=== PATIENT | female | born 1960 | race Caucasian/White ===

== ENCOUNTER → 2016-10-29 | Outpatient (CLI) | payer OTHER ==
[2015-12-25 08:05] VITALS: BP 163/77
[~2016-10-29] MED LIST: HYDR-971 PO; IBUP-1060 PO; LEVO25TA55 PO; METH4TAB2 PO
[2016-10-29 07:11] LABS: BASO % 1 % (0-3); EOS % 1 % (0-3); HEMATOCRIT 41.7 % (36.0-47.0); LYMPH # 1.7 x10^3/uL (1.0-4.8); LYMPH % 23 % (24-48); MEAN CORPUSCULAR HEMOGLOBIN 31 pg (25-35); MEAN CORPUSCULAR HGB CONC 34 g/dL (31-37); MEAN CORPUSCULAR VOLUME 91 fL (79-100); MONO % 5 % (0-9); NEUT % 70 % (31-73); PLATELET COUNT 235 x10^3/uL (140-400); RED BLOOD COUNT 4.56 x10^6/uL (3.50-5.40); RED CELL DISTRIBUTION WIDTH 13.9 % (11.5-14.5); WHITE BLOOD COUNT 7.6 x10^3/uL (4.0-11.0)
[2016-10-29 07:37] LABS: ALBUMIN 3.5 g/dL (3.4-5.0); ALBUMIN/GLOBULIN RATIO 1.1 (1.0-1.7); CALCIUM 8.5 mg/dL (8.5-10.1); CHOLESTEROL/HDL RATIO 3.8; CREATININE 0.9 mg/dL (0.6-1.0); GFR 64.8; POTASSIUM 4.1 mmol/L (3.5-5.1); TOTAL BILIRUBIN 0.3 mg/dL (0.2-1.0); TOTAL PROTEIN 6.8 g/dL (6.4-8.2)
== END | disposition home or self-care (01) ==
LOC: LAB 06:38
PROVIDERS: ATTEND Internal Medicine
DX: E03.9 Hypothyroidism, unspecified (principal)
CPT/HCPCS: 36415; 80053; 80061; 82306; 84443; 85025

== ENCOUNTER → 2017-03-14 | Outpatient (CLI) | payer OTHER ==
[2017-03-14 14:13] LABS: THYROID STIM HORMONE (TSH) 8.896 uIU/mL (0.358-3.74)
== END | disposition home or self-care (01) ==
LOC: LAB 13:34
DX: E03.9 Hypothyroidism, unspecified (principal)
CPT/HCPCS: 36415; 82306; 84443

== ENCOUNTER → 2017-10-08 | Outpatient (CLI) | payer OTHER | END | disposition home or self-care (01) | LOC: MAMMO 08:57 | DX: Z12.31 Encounter for screening mammogram for malignant neoplasm of breast (principal); E03.9 Hypothyroidism, unspecified; Z87.891 Personal history of nicotine dependence; Z90.49 Acquired absence of other specified parts of digestive tract; Z90.12 Acquired absence of left breast and nipple; Z90.710 Acquired absence of both cervix and uterus | CPT/HCPCS: 77063; 77067 ==

== ENCOUNTER → 2017-10-10 | Outpatient (CLI) | payer OTHER ==
[2017-10-10 12:39] LABS: THYROID STIM HORMONE (TSH) 8.923 uIU/mL (0.358-3.74)
== END | disposition home or self-care (01) ==
LOC: LAB 11:31
DX: E55.9 Vitamin D deficiency, unspecified (principal); E03.9 Hypothyroidism, unspecified; Z87.891 Personal history of nicotine dependence; Z90.49 Acquired absence of other specified parts of digestive tract; Z90.12 Acquired absence of left breast and nipple; Z90.710 Acquired absence of both cervix and uterus
CPT/HCPCS: 36415; 82306; 84443

== ENCOUNTER → 2017-12-18 | Outpatient (CLI) | payer OTHER ==
[2015-12-25 08:05] VITALS: BP 163/77
== END | disposition home or self-care (01) ==
LOC: LAB 10:45
PROVIDERS: ATTEND Internal Medicine
DX: E03.9 Hypothyroidism, unspecified (principal); E55.9 Vitamin D deficiency, unspecified
CPT/HCPCS: 36415; 82306; 84443

== ENCOUNTER 2017-12-31 13:47 | Emergency (ER) | payer OTHER ==
[~2017-12-31] VITALS: Ht 175.3 cm; Wt 86.2 kg
[2017-12-31 14:41] VITALS: BP 134/64
--- NOTE | 2017-12-31 15:31 | RAD ---
Lumbar spine, 3 views, 12/31/2017: HISTORY: Lifting injury No fracture or subluxation is evident. There is mild disc space narrowing and marginal spurring at L5-S1. There are mild degenerative changes involving the facet joints bilaterally in the lower lumbar spine. Aortic calcific plaquing is present. IMPRESSION: 1. Mild to moderate degenerative change in the lower lumbar spine. 2. No acute bony abnormality is detected. Thoracic spine, 3 views, 12/31/2017: There are mild scattered marginal spurs. No fracture or dislocation is identified. The paraspinous soft tissues are unremarkable. IMPRESSION: 1. Mild scattered degenerative changes. 2. No acute bony abnormality is detected. Electronically signed by: Lance Moody MD (12/31/2017 3:28 PM) [facility]
--- NOTE | 2017-12-31 15:38 | PHYS DOC ---
Past Medical History Past Medical History: Hypothyroid, Other Additional Past Medical Histor: When pt informed of b/p reading replied it was normal for her-no hx HTN. Past Surgical History: Appendectomy, , Hysterectomy, Tubal ligation, Other Additional Past Surgical Histo: L) breast lymphectomy. 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 Patient states that it does ache on both her right and left side but it 's more so on her left side and states that her upper thighs feel little tingly. Patient states that she did have a ruptured disc in 2000 and had surgery on her lumbar for it. Patient states she's been taking 800 mg of Motrin and 10 mg Flexeril and states that she had been getting the pain down to where she can go to work but today she bent down and went to stand back up and the pain started again. She states it is a 6 out of 10. The pain does not radiate. Patient states she has no known drug allergies. Patient is ambulatory. Patient states she takes Synthroid, vitamin D, estrogen and Motrin as needed. Review of Systems Review of Systems Constitutional: Denies fever or chills [] Eyes: Denies change in visual acuity, redness, or eye pain [] HENT: Denies nasal congestion or sore throat [] Respiratory: Denies cough or shortness of breath [] Cardiovascular: No additional information not addressed in HPI [] GI: Denies abdominal pain, nausea, vomiting, bloody stools or diarrhea [] : Denies dysuria or hematuria [] Musculoskeletal: Low back pain or joint pain [] Integument: Denies rash or skin lesions [] Neurologic: Denies headache, focal weakness. Bilateral thigh tingling sensory changes [] Endocrine: Denies polyuria or polydipsia [] All other systems were reviewed and found to be within normal limits, except as documented in this note. Allergies Allergies Allergies Coded Allergies Type Severity Reaction Last Updated Verified No Known Drug Allergies 12/25/15 No Physical Exam Physical Exam Constitutional: Well developed, well nourished, no acute distress, non-toxic appearance. [] HENT: Normocephalic, atraumatic, bilateral external ears normal, oropharynx moist, no oral exudates, nose normal. [] Eyes: PERRLA, EOMI, conjunctiva normal, no discharge. [] Neck: Normal range of motion, no tenderness, supple, no stridor. [] Cardiovascular:Heart rate regular rhythm, no murmur [] Lungs & Thorax: Bilateral breath sounds clear to auscultation [] Abdomen: Bowel sounds normal, soft, no tenderness, no masses, no pulsatile masses. [] Skin: Warm, dry, no erythema, no rash. [] Back: No tenderness, no CVA tenderness. [] Extremities: No tenderness, no cyanosis, no clubbing, ROM intact, no edema. [] Neurologic: Alert and oriented X 3, normal motor function, normal sensory function, no focal deficits noted. [] Psychologic: Affect normal, judgement normal, mood normal. [] Current Patient Data Vital Signs Vital Signs Date Time Temp Pulse Resp B/P (MAP) Pulse Ox O2 Delivery O2 Flow Rate FiO2 12/31/17 14:41 97.8 16 16 134/64 (87) 95 Room Air 97.8 EKG EKG [] Radiology/Procedures Radiology/Procedures [] Impressions: [facility] [address] [place], [place] [id number] IMAGING REPORT Signed PATIENT: SYLVIE HERNADEZ ACCOUNT: [id number] : 1960 LOCATION: ER AGE: 57 SEX: F EXAM STATUS: REG ER ORD. PHYSICIAN: ARIANA OROZCO APRN REASON: BACK PAIN PROCEDURE: LUMBAR SPINE 2-3V Lumbar spine, 3 views, 12/31/2017: HISTORY: Lifting injury No fracture or subluxation is evident. There is mild disc space narrowing and marginal spurring at L5-S1. There are mild degenerative changes involving the facet joints bilaterally in the lower lumbar spine. Aortic calcific plaquing is present. IMPRESSION: 1. Mild to moderate degenerative change in the lower lumbar spine. 2. No acute bony abnormality is detected. Thoracic spine, 3 views, 12/31/2017: There are mild scattered marginal spurs. No fracture or dislocation is identified. The paraspinous soft tissues are unremarkable. IMPRESSION: 1. Mild scattered degenerative changes. 2. No acute bony abnormality is detected. Electronically signed by: Lance Moody MD (12/31/2017 3:28 PM) [facility] DICTATED and SIGNED BY: LANCE MOODY MD DATE: 12/31/171525 [facility] [address] [place] [address] IMAGING REPORT Signed PATIENT: SYLVIE HERNADEZ ACCOUNT: [id number] : 1960 LOCATION: ER AGE: 57 SEX: F EXAM STATUS: REG ER ORD. PHYSICIAN: ARIANA OROZCO APRN REASON: BACK PAIN PROCEDURE: LUMBAR SPINE 2-3V Lumbar spine, 3 views, 12/31/2017: HISTORY: Lifting injury No fracture or subluxation is evident. There is mild disc space narrowing and marginal spurring at L5-S1. There are mild degenerative changes involving the facet joints bilaterally in the lower lumbar spine. Aortic calcific plaquing is present. IMPRESSION: 1. Mild to moderate degenerative change in the lower lumbar spine. 2. No acute bony abnormality is detected. Thoracic spine, 3 views, 12/31/2017: There are mild scattered marginal spurs. No fracture or dislocation is identified. The paraspinous soft tissues are unremarkable. IMPRESSION: 1. Mild scattered degenerative changes. 2. No acute bony abnormality is detected. Electronically signed by: Lance Moody MD (12/31/2017 3:28 PM) [facility] DICTATED and SIGNED BY: LANCE MOODY MD DATE: 12/31/171525 Course & Med Decision Making Course & Med Decision Making Patient is a 57 year old female who presents with states she works at [employer] and hurt her lower back 1 week ago as she was lifting a patient. Patient states that it does ache on both her right and left side but it 's more so on her left side and states that her upper thighs feel little tingly. Patient states that she did have a ruptured disc in 2000 and had surgery on her lumbar for it. Patient states she's been taking 800 mg of Motrin and 10 mg Flexeril and states that she had been getting the pain down to where she can go to work but today she bent down and went to stand back up and the pain started again. She states it is a 6 out of 10. The pain does not radiate. Patient states she has no known drug allergies. Patient is ambulatory. Patient states she takes Synthroid, vitamin D, estrogen and Motrin as needed. Patient has no weaknesses. 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 She is alert and oriented. Patient is able to walk with a steady gait. He shouldn't has no deformities or bruising to her back or extremities. Patient has no extremity swelling or swelling in her back. No tenderness to her back with palpation and no focal spine tenderness. Pulses are present in all extremities. Lumbar and thoracic spine x-ray shows 1. Mild scattered degenerative changes. 2. No acute bony abnormality is detected. Patient is stable and will follow-up with her primary care provider. Patient should continue to take Flexeril and ibuprofen for her pain and try heat. Dragon Disclaimer Dragon Disclaimer This electronic medical record was generated, in whole or in part, using a voice recognition dictation system. Departure Departure Impression: Primary Impression: Back pain Disposition: 01 HOME, SELF-CARE Condition: STABLE Referrals: VIDAL NEWBY MD (PCP) Patient Instructions: Back Pain, Adult, Low Back Sprain with Rehab[facility] Additional Instructions: Follow-up with her primary care. Continue taking Flexeril and ibuprofen for pain. Also try using heat. Problem Qualifiers Primary Impression: Back pain Back pain location: low back pain Chronicity: acute Back pain laterality: bilateral Sciatica presence: without sciatica Qualified Codes: M54.5 - Low back pain ARIANA OROZCO SUPERVISOR [employer] Dec 31, 2017 15:38
== END 2017-12-31 15:48 | disposition home or self-care (01) ==
LOC: ER 13:47
DX: M54.5 Low back pain (principal); E03.9 Hypothyroidism, unspecified; Z90.49 Acquired absence of other specified parts of digestive tract; Z90.710 Acquired absence of both cervix and uterus
CPT/HCPCS: 72072; 72100; 99284

== ENCOUNTER → 2018-03-24 | Outpatient (CLI) | payer OTHER ==
[~2018-03-24] MED LIST changes: +HYDR-3164 PO; -HYDR-971 PO
== END | disposition home or self-care (01) ==
LOC: LAB 09:18
PROVIDERS: ATTEND Family Medicine
DX: E03.9 Hypothyroidism, unspecified (principal)
CPT/HCPCS: 36415; 84443

== ENCOUNTER → 2018-06-04 | Outpatient (CLI) | payer OTHER ==
[2018-06-04 08:31] LABS: HEMATOCRIT 42.1 % (36.0-47.0); HEMOGLOBIN 14.3 g/dL (12.0-15.5); RED BLOOD COUNT 4.6 x10^6/uL (3.50-5.40); RED CELL DISTRIBUTION WIDTH 13.8 % (11.5-14.5); WHITE BLOOD COUNT 6.8 x10^3/uL (4.0-11.0)
[2018-06-04 08:38] LABS: CALCIUM 8.6 mg/dL (8.5-10.1); CREATININE 0.8 mg/dL (0.6-1.0); GFR 73.9; POTASSIUM 4.5 mmol/L (3.5-5.1)
[2018-06-04 08:45] LABS: CHOLESTEROL/HDL RATIO 4.4
[2018-06-04 08:49] LABS: FREE T4 1.31 ng/dL (0.76-1.46); THYROID STIM HORMONE (TSH) 5.113 uIU/mL (0.358-3.74)
== END | disposition home or self-care (01) ==
LOC: LAB 06:39
PROVIDERS: ATTEND Family Medicine
DX: Z00.00 Encounter for general adult medical examination without abnormal findings (principal); E03.9 Hypothyroidism, unspecified
CPT/HCPCS: 36415; 80048; 80061; 84439; 84443; 85027

== ENCOUNTER → 2018-08-06 | Outpatient (CLI) | payer OTHER ==
[2018-08-06 11:27] LABS: FREE T4 1.28 ng/dL (0.76-1.46); THYROID STIM HORMONE (TSH) 1.797 uIU/mL (0.358-3.74)
== END | disposition home or self-care (01) ==
LOC: LAB 10:39
PROVIDERS: ATTEND Family Medicine
DX: E03.9 Hypothyroidism, unspecified (principal)
CPT/HCPCS: 36415; 84439; 84443

== ENCOUNTER → 2018-08-08 | Outpatient (CLI) | payer OTHER ==
--- NOTE | 2018-08-08 16:39 | RAD ---
Examination: Ultrasound thyroid HISTORY: History of thyroid nodule COMPARISON: None available. FINDINGS: The right lobe of the thyroid gland measures 4.2 x 2.1 x 1.7 cm. The left lobe of thyroid measures 3.8 x 1.1 x 1.4 cm. The isthmus measures 2.5 mm in AP dimension. Thyroid gland appears heterogenous in echogenicity. There is a solid-appearing 9 mm nodule identified in the right lobe of the thyroid gland. IMPRESSION: 1. A 9 mm solid nodule identified in the right lobe of the thyroid gland. ACR TR 3. Follow-up examination may be useful in 6 months to one year. 2. Heterogeneous appearing thyroid gland, correlate for thyroiditis. Electronically signed by: Guzman Drake MD (08/08/2018 4:37 PM) [place] [id number]
== END | disposition home or self-care (01) ==
LOC: US 16:03
PROVIDERS: ATTEND Family Medicine
DX: E04.1 Nontoxic single thyroid nodule (principal); E03.9 Hypothyroidism, unspecified; R13.12 Dysphagia, oropharyngeal phase
CPT/HCPCS: 76536

== ENCOUNTER → 2018-11-19 | Outpatient (CLI) | payer OTHER | END | disposition home or self-care (01) | LOC: LAB 10:31 | PROVIDERS: ATTEND Family Medicine | DX: R53.83 Other fatigue (principal) | CPT/HCPCS: 36415; 82306; 84443 ==

== ENCOUNTER → 2019-03-14 | Outpatient (CLI) | payer BC, OTHER ==
--- NOTE | 2019-03-16 17:10 | RAD ---
DATE: 03/14/2019 EXAM: MAMMO TOLU SCREENING BILATERAL HISTORY: Routine screening COMPARISON: 01/18/2016, 07/30/2014, 10/08/2017 mammographic exams This study was interpreted with the benefit of Computerized Aided Detection (CAD). Breast Density: HETERO The breast parenchyma is heterogenously dense, which could reduce sensitivity of mammography. Breast parenchyma level C. FINDINGS: Numerous small masses bilaterally are present and smoothly marginated measuring less than 0.7 cm diameter. These are best seen on tomosynthesis imaging. No dominant mass. No suspicious calcification or distortion. IMPRESSION: Stable BI-RADS CATEGORY: 2 BENIGN FINDING(S) RECOMMENDED FOLLOW-UP: 12M 12 MONTH FOLLOW-UP PQRS compliance statement: Patient information was entered into a reminder system with a target due date for the next mammogram. Mammography is a sensitive method for finding small breast cancers, but it does not detect them all and is not a substitute for careful clinical examination. A negative mammogram does not negate a clinically suspicious finding and should not result in delay in biopsying a clinically suspicious abnormality. "Our facility is accredited by the [employer] Mammography Program."
== END | disposition home or self-care (01) ==
LOC: MAMMO 09:05
PROVIDERS: ATTEND Family Medicine
DX: Z12.31 Encounter for screening mammogram for malignant neoplasm of breast (principal); N63.20 Unspecified lump in the left breast, unspecified quadrant; N63.10 Unspecified lump in the right breast, unspecified quadrant
CPT/HCPCS: 77063; 77067

== ENCOUNTER → 2019-05-14 | Outpatient (CLI) | payer OTHER ==
[2019-05-14 12:05] LABS: BASO % 1 % (0-3); EOS # 0.1 x10^3/uL (0.0-0.7); EOS % 1 % (0-3); HEMATOCRIT 38.4 % (36.0-47.0); HEMOGLOBIN 13.2 g/dL (12.0-15.5); LYMPH # 1.6 x10^3/uL (1.0-4.8); LYMPH % 26 % (24-48); MEAN CORPUSCULAR HEMOGLOBIN 31 pg (25-35); MEAN CORPUSCULAR HGB CONC 34 g/dL (31-37); MEAN CORPUSCULAR VOLUME 90 fL (79-100); MONO # 0.3 x10^3/uL (0.0-1.1); MONO % 4 % (0-9); NEUT # 4.2 x10^3/uL (1.8-7.7); NEUT % 68 % (31-73); PLATELET COUNT 242 x10^3/uL (140-400); RED BLOOD COUNT 4.27 x10^6/uL (3.50-5.40); WHITE BLOOD COUNT 6.1 x10^3/uL (4.0-11.0)
[2019-05-14 12:16] LABS: ALBUMIN 3.3 g/dL (3.4-5.0); CALCIUM 8.8 mg/dL (8.5-10.1); CREATININE 0.8 mg/dL (0.6-1.0); GFR 73.7; POTASSIUM 4.2 mmol/L (3.5-5.1); TOTAL BILIRUBIN 0.3 mg/dL (0.2-1.0); TOTAL PROTEIN 6.6 g/dL (6.4-8.2)
[2019-05-14 12:21] LABS: CHOLESTEROL/HDL RATIO 3.7
== END | disposition home or self-care (01) ==
LOC: LAB 11:36
PROVIDERS: ATTEND Family Medicine
DX: Z00.00 Encounter for general adult medical examination without abnormal findings (principal); Z13.220 Encounter for screening for lipoid disorders
CPT/HCPCS: 36415; 80053; 80061; 85025

== ENCOUNTER → 2019-09-15 | Outpatient (CLI) | payer OTHER | END | disposition home or self-care (01) | LOC: LAB 12:04 | PROVIDERS: ATTEND Internal Medicine Pulmonary Disease | DX: Z11.59 Encounter for screening for other viral diseases (principal) | CPT/HCPCS: U0003-CS ==

== ENCOUNTER → 2019-12-10 | Outpatient (CLI) | payer OTHER | END | disposition home or self-care (01) | LOC: LAB 15:22 | PROVIDERS: ATTEND Family Medicine | DX: E03.9 Hypothyroidism, unspecified (principal) | CPT/HCPCS: 36415; 82306; 84443 ==

== ENCOUNTER → 2020-03-24 | Outpatient (CLI) | payer OTHER ==
--- NOTE | 2020-03-28 08:26 | RAD ---
EXAM: Bilateral digital screening mammogram with tomosynthesis. HISTORY: 59-year-old female presents for screening mammography. TECHNIQUE: Full-field digital craniocaudal and mediolateral oblique 2D and 3D tomosynthesis images of both breasts are obtained for evaluation. Computer aided detection was applied. COMPARISON: 03/14/2019 and 10/08/2017 BREAST PARENCHYMAL DENSITY: Level B - Scattered fibroglandular densities. FINDINGS: There is no new suspicious mass, microcalcification or region of architectural distortion. There are multiple stable areas of nodularity within both breasts. IMPRESSION: BI-RADS Category 2: Benign finding(s). RECOMMENDATION: Annual mammography is recommended. If your mammogram demonstrates that you have dense breast tissue, which could hide abnormalities, and if you have other risk factors for breast cancer that have been identified, you might benefit from s upplemental screening tests that may be suggested by your ordering physician. Dense breast tissue, i n and of itself, is a relatively common condition. This information is not provided to cause undue c oncern, but rather to raise your awareness and to promote discussion with your physician regarding th e presence of other risk factors, in addition to dense breast tissue. A report of your mammography re sults will be sent to you and your physician. You should contact your physician if you have any ques tions or concerns regarding this report. Mammography is a sensitive method for finding small breast cancers, but it does not detect them all a nd is not a substitute for careful clinical examination. A negative mammogram does not negate a clin ically suspicious finding and should not result in delay in biopsying a clinically suspicious abnorma lity. PQRS compliance statement - Patient information was entered into a reminder system with a target due date for the next mammogram. "Our facility is accredited by the [employer] Mammography Program." Electronically signed by: Donna Palomino MD (03/28/2020 8:24 AM) [id number]
== END ==
LOC: MAMMO 15:09
PROVIDERS: ATTEND Family Medicine
DX: Z12.31 Encounter for screening mammogram for malignant neoplasm of breast (principal); N64.89 Other specified disorders of breast
CPT/HCPCS: 77063; 77067

== ENCOUNTER → 2020-05-10 | Outpatient (CLI) | payer OTHER ==
--- NOTE | 2020-05-10 14:55 | RAD ---
XR HAND_RIGHT 3 VIEWS DATE: 05/10/2020 9:19 AM INDICATION: RIGHT HAND PAIN. COMPARISON: None. FINDINGS: Bones: There is no evidence of acute fracture or dislocation. Joints: Severe degenerative changes of the first CMC joint with mild subluxation. Mild degenerative c hanges of the IP joints. Miscellaneous: Chondrocalcinosis of the TFCC. IMPRESSION: 1. No acute fracture. 2. Multifocal degenerative changes, worst and severe at the first CMC joint. 3. Chondrocalcinosis of the TFCC, nonspecific but can be seen with CPPD arthropathy. Electronically signed by: Cesar Carbajal MD (05/10/2020 2:53 PM) [id number]
== END ==
LOC: RAD 09:09
PROVIDERS: ATTEND Nurse Practitioner Gerontology
DX: M19.041 Primary osteoarthritis, right hand (principal); M11.241 Other chondrocalcinosis, right hand
CPT/HCPCS: 73130

== ENCOUNTER → 2020-06-09 | Outpatient (CLI) | payer OTHER ==
[2020-06-09 09:08] LABS: BASO % 1 % (0-3); BILIRUBIN,URINE NEGATIVE (NEG); CLARITY,URINE CLEAR; COLOR,URINE YELLOW; EOS # 0.1 x10^3/uL (0.0-0.7); EOS % 2 % (0-3); HEMATOCRIT 40.3 % (36.0-47.0); LYMPH # 1.3 x10^3/uL (1.0-4.8); LYMPH % 22 % (24-48); MEAN CORPUSCULAR HEMOGLOBIN 31 pg (25-35); MEAN CORPUSCULAR HGB CONC 35 g/dL (31-37); MEAN CORPUSCULAR VOLUME 89 fL (79-100); MONO # 0.3 x10^3/uL (0.0-1.1); MONO % 5 % (0-9); NEUT # 4.1 x10^3/uL (1.8-7.7); NEUT % 70 % (31-73); NITRITE,URINE NEGATIVE (NEG); PLATELET COUNT 223 x10^3/uL (140-400); PROTEIN,URINE NEGATIVE (NEG-TRACE); RED BLOOD COUNT 4.51 x10^6/uL (3.50-5.40); RED CELL DISTRIBUTION WIDTH 13.2 % (11.5-14.5); WHITE BLOOD COUNT 5.8 x10^3/uL (4.0-11.0)
[2020-06-09 09:26] LABS: ALBUMIN 3.3 g/dL (3.4-5.0); ALBUMIN/GLOBULIN RATIO 0.9 (1.0-1.7); CALCIUM 8.2 mg/dL (8.5-10.1); CREATININE 0.8 mg/dL (0.6-1.0); TOTAL PROTEIN 6.8 g/dL (6.4-8.2)
[2020-06-09 09:27] LABS: GFR 73.4; MAGNESIUM 2.1 mg/dL (1.8-2.4); POTASSIUM 4.4 mmol/L (3.5-5.1); TOTAL BILIRUBIN 0.4 mg/dL (0.2-1.0)
[2020-06-09 09:28] LABS: CHOLESTEROL/HDL RATIO 3.6
[2020-06-09 09:31] LABS: RBC,URINE 0 /HPF (0-2); WBC,URINE OCC /HPF (0-4)
[2020-06-09 09:32] LABS: BACTERIA,URINE MODERATE /HPF (0-FEW)
== END ==
LOC: LAB 06:44
PROVIDERS: ATTEND Family Medicine
DX: Z13.220 Encounter for screening for lipoid disorders (principal); R25.2 Cramp and spasm; E03.9 Hypothyroidism, unspecified
CPT/HCPCS: 36415; 80053; 80061; 81001; 83735; 85025; 87086

== ENCOUNTER → 2020-06-22 | Outpatient (CLI) | payer OTHER ==
--- NOTE | 2020-06-22 13:53 | KCIC ---
EXAM: DUAL ENERGY X-RAY ABSORPTIOMETRY (DEXA). HISTORY: Postmenopausal screening. FINDINGS: The lowest measured T-score is -0.9 in the left hip, based on a bone mineral density of 0.8 38 g/cm^2. Refer to the worksheets for full detail. No comparison examinations are available. IMPRESSION: 1. Normal. Bone mineral density yields a T-score of -1.0 or greater. Fracture risk is low. 2. FRAX report: Not calculated. METHODOLOGY: Dual energy x-ray absorptiometry was performed to measure bone mineral density. The foll owing analysis is based on the 2019 Official Positions of the International Society for Clinical Dens itometry: Measurements of the hips and the average of L1-L4 are preferred. When the spine and/or hip cannot be feasibly measured or interpreted, or in the setting of hyperparathyroidism, distal radial bone minera l density may be measured. The lumbar spine T-score is based on the average bone mineral density of L1-L4. In the setting of art ifact or anatomic abnormality, some lumbar levels may be excluded, and the remaining levels used for calculation. A single lumbar level is not used for diagnosis, and if only a single level is available for assessment, another anatomic site will be used to assign a diagnosis. The hip T-score is based on the bone mineral density measurement of the femoral neck or total proxima l femur of either side, whichever is lowest. Bilateral mean values are not used for diagnosis. The forearm T-score is derived from 33% of the distal radius of the nondominant forearm. Electronically signed by: Donna Palomino MD (06/22/2020 1:51 PM) [facility]
--- NOTE | 2020-06-22 17:27 | KCIC ---
CT LOW DOSE LUNG SCREEN INDICATION: Lung cancer screening, smoker of 50 yrs. Pt smoked 1 pk/day for 40 yrs., cut back the las t 10 yrs. COMPARISON STUDY: None. TECHNIQUE: Unenhanced axial images were obtained through the lungs and upper abdomen using low dose technique. Coronal and sagittal multiplanar reformatted images were also obtained. PQRS compliance statement: One or more of the following individualized dose reduction techniques were utilized for this examinat ion: 1. Automated exposure control 2. Adjustment of the mA and/or kV according to patient size 3. Use of iterative reconstruction technique FINDINGS: Lung Nodules: There are a couple of small pulmonary nodules with installation service representative nodules as follows: M iddle lobe 4 mm nodule (series 6 image 156), right lower lobe 5 mm subpleural nodule (image 129), lef t upper lobe 4 mm nodule (image 98). Lungs and Airways: No pulmonary mass or consolidation. Centrilobular and paraseptal emphysema. Normal central airways. Pleura: Normal pleural spaces. Heart and Mediastinum: The visualized portions of the thyroid gland are normal in size and attenuatio n. No axillary or supraclavicular lymphadenopathy. No mediastinal, hilar or retrocrural lymphadenopat hy. Normal cardiac size. No pericardial effusion. Coronary artery atherosclerotic disease. Atheroscle rosis of the thoracic aorta and branch vessels. Abdomen: The visualized abdominal organs demonstrate no abnormality. Bones and Soft Tissues: Degenerative changes of the spine. IMPRESSION: 1. Several small pulmonary nodules measuring less than 6 mm. Lung-RADS Category: 2 Management Recommendation: Follow up low-dose chest CT in one year. 2. Emphysema. 3. Coronary artery atherosclerotic disease. Electronically signed by: Cesar Carbajal MD (06/22/2020 5:24 PM) [id number]
== END ==
LOC: KCIC DEXA 13:12
PROVIDERS: ATTEND Family Medicine
DX: Z12.2 Encounter for screening for malignant neoplasm of respiratory organs (principal); N95.9 Unspecified menopausal and perimenopausal disorder; N95.0 Postmenopausal bleeding; R91.8 Other nonspecific abnormal finding of lung field; J43.9 Emphysema, unspecified; I25.10 Atherosclerotic heart disease of native coronary artery without angina pectoris; I70.0 Atherosclerosis of aorta; M47.814 Spondylosis without myelopathy or radiculopathy, thoracic region; F17.200 Nicotine dependence, unspecified, uncomplicated
CPT/HCPCS: 71271; 77080

== ENCOUNTER → 2020-07-29 | Day surgery (SDC) | payer OTHER ==
[~2020-07-29] VITALS: Ht 175.3 cm; Wt 198.0 kg
[~2020-07-29] MED LIST changes: +CRESTOR5 MG PO; +ESTR1TAB17 PO; +IV RINGERS,LACTATED 1000ML 1,000 ML IV SCH; +LIDOCAINE 2% PF 5 ML VIAL. ONE; +PROPOFOL 10 MG/ML (20ML) VIAL. IV ONE
[2020-07-29 08:53] VITALS: BP 146/66
[2020-07-29 10:37] VITALS: BP 131/62
== END | disposition home or self-care (01) ==
LOC: ENDOS 07:51
PROVIDERS: ATTEND Internal Medicine Gastroenterology
DX: Z12.11 Encounter for screening for malignant neoplasm of colon (principal); K64.0 First degree hemorrhoids; K63.89 Other specified diseases of intestine; E78.00 Pure hypercholesterolemia, unspecified; E03.9 Hypothyroidism, unspecified; G47.30 Sleep apnea, unspecified; M19.90 Unspecified osteoarthritis, unspecified site; F17.210 Nicotine dependence, cigarettes, uncomplicated; Z90.710 Acquired absence of both cervix and uterus; Z98.890 Other specified postprocedural states; Z79.899 Other long term (current) drug therapy; Z72.89 Other problems related to lifestyle
CPT/HCPCS: 45378; J2704

== ENCOUNTER 2020-11-24 12:36 | Day surgery (SDC) | payer OTHER ==
[~2020-11-24] VITALS: Ht 177.8 cm; Wt 90.7 kg
[~2020-11-24 12:36] MED LIST changes: +BACITRACIN TOPICAL OINT PACKET. TP ONE; +EPINEPHrine NASAL 30 MG/30 ML BOTTLE ONE; +GELATIN SPONGE SIZE 100. ONE; +HYDROmorphone 2 MG/ML VIAL IVP PRN; -IV RINGERS,LACTATED 1000ML 1,000 ML IV SCH; +LIDOCAINE 1%/EPI 1:100,000 20 ML VIAL. ONE; -LIDOCAINE 2% PF 5 ML VIAL. ONE; +MORPHINE SULFATE 2 MG/ML INJ. IVP PRN; +OXYMETAZOLINE 0.05% NASAL SPRAY 30ML BOTTLE. NS ONE; +PROCHLORPERAZINE 10 MG/2 ML VIAL. IVP PRN; -PROPOFOL 10 MG/ML (20ML) VIAL. IV ONE; +fentaNYL PF VIAL 100 MCG/2 ML VIAL IVP PRN
[2020-11-24] MEDS ORDERED: fentaNYL PF VIAL 100 MCG/2 ML VIAL ONE ×3 (12:51→16:04)
[2020-11-24] MEDS ORDERED: SUCCINYLCHOLINE 200 MG/10 ML VIAL. ONE (12:52)
[2020-11-24] MEDS ORDERED: ROCURONIUM 50 MG/5 ML VIAL. ONE (12:53)
[2020-11-24 12:56] VITALS: BP 155/79
[2020-11-24] MEDS: IV RINGERS,LACTATED 1000ML 1,000 ML IV SCH ×2 (13:23→15:52)
[2020-11-24] MEDS ORDERED: NEOMY/BACITR/POLYMYXIN OINT PACKET. TP ONE (14:00)
[2020-11-24] MEDS ORDERED: LIDOCAINE 2% PF 5 ML VIAL. ONE (14:15)
[2020-11-24] MEDS ORDERED: DEXAMETHASONE SOD PHOS 20 MG/5 ML VIAL. ONE (14:15)
[2020-11-24] MEDS ORDERED: PROPOFOL 10 MG/ML (20ML) VIAL. IV ONE ×2 (14:15→14:45)
[2020-11-24] MEDS ORDERED: ONDANSETRON PF 4 MG/2 ML VIAL. ONE (14:15)
[2020-11-24] MEDS ORDERED: GLYCOPYRROLATE 1 MG/5 ML VIAL. ONE (14:16)
[2020-11-24] MEDS ORDERED: FAMOTIDINE 20 MG/2 ML VIAL ONE (14:33)
[2020-11-24] MEDS ORDERED: SEVOFLURANE 61 TO 120 MINUTES. IH ONE (14:45)
[2020-11-24] MEDS ORDERED: AMOX1TAB61 PO (15:28)
[2020-11-24] MEDS ORDERED: OXYC5CAP PO (15:28)
[2020-11-24] MEDS ORDERED: ONDA4TAB7 PO (15:28)
--- NOTE | 2020-11-24 15:33 | PDOC4 ---
IMMEDIATE POST OP NOTE Date: Nov 24, 2020 Pre-Op Diagnosis deviated septum, bilateral inferior turbinate hypertrophy Post-Op Diagnosis same as above Procedure Performed septoplasty and bilateral inferior turbinate reduction Surgeon Dr. Sophie Chapin Keno Writer/Runner none Anesthesiologist Dr. Valdes Anesthesia Type: General Blood Loss 20mL Specimens Obtained none Findings 1. Septum deviated to the left, >70% 2. Bilateral inferior turbinate hypertrophy Complications none Operative Note Dictation # [id number] SOPHIE CHAPIN MD Nov 24, 2020 15:33
[2020-11-24] MEDS ORDERED: hydrALAZINE 20 MG/ML VIAL. IVP PRN (15:45)
[2020-11-24] MEDS ORDERED: hydrALAZINE 20 MG/ML VIAL. ONE (15:46)
--- NOTE | 2020-11-24 15:54 | OP ---
DATE OF SURGERY: 11/24/2020 PREOPERATIVE DIAGNOSES: Deviated septum and bilateral inferior turbinate hypertrophy. POSTOPERATIVE DIAGNOSES: Deviated septum and bilateral inferior turbinate hypertrophy. PROCEDURE PERFORMED: Septoplasty and bilateral inferior turbinate reduction. SURGEON: Sophie Chapin MD ANESTHESIA: General endotracheal anesthesia. INDICATIONS FOR SURGERY: The patient is a 60-year-old female with a longstanding history of chronic nasal airway obstruction that has been refractory to medical management. Decision was made for patient to undergo the above procedure after the risks, benefits and alternatives of surgery were thoroughly discussed with the patient and informed consent was obtained. INTRAOPERATIVE FINDINGS: 1. Severe septal deviation to the left causing greater than 70% obstruction of the nasal airway. 2. Bilateral inferior turbinate hypertrophy. ESTIMATED BLOOD LOSS: 20 mL. SPECIMENS: None. DESCRIPTION OF PROCEDURE: The patient was brought back to room per Anesthesia and intubated in standard fashion. The patient was then turned 90 degrees in the room. Her nasal vestibular hairs were trimmed and the anterior septum and anterior aspect of the inferior turbinates were injected with a submucosal injection of 1% lidocaine with 1:100,000 epinephrine. Afrin-soaked pledgets were then inserted in the patient's nasal airway and the patient was prepped and draped in standard fashion. Afrin-soaked pledgets were subsequently removed. A left-sided hemitransfixion incision was made, elevated the mucoperichondrial flap of the left cartilaginous and bony septum and left nasal floor including dissecting around the large bony spur. A D-knife was then used to cut anterior to the septal deflection, leaving a 1.5 cm caudal and dorsal strut intact. I then elevated the mucoperichondrial flap off the right cartilaginous and bony septum and right nasal floor. A swivel knife was then used to remove the deviated portions of cartilage. Sharp scissors were used superiorly. An osteotome was used along the floor to remove the deviated portions of the nasal bone and further use of the Candido-Dominguez forceps superiorly to remove the high septal deflection bilaterally limiting access to the middle meatus. After this was completed, the nasal septum was found to be straight. The left-sided hemitransfixion incision was closed with simple interrupted sutures of 4-0 chromic and a quilting mattress suture of 4-0 plain gut was used to bring the two mucoperichondrial flaps back together at the midline. Attention was then taken to performing the bilateral inferior turbinate reduction. Beginning on the left side using a 0-degree scope to visualize the patient's left nasal cavity. Submucosal resection of the anterior aspect of the inferior turbinate was performed using the straight microdebrider. I then resected the excess mucosa along the entire length of the inferior turbinate along its lateral and inferior border including the posterior mulberry tissue. A suction De Pere was then used to elevate the residual mucosa off the most inferior portion of the turbinate bone. A conservative resection of the most inferior portion of the turbinate bone was performed using Gutierrez-Cut forceps. The residual mucosa was then trimmed and redraped on the residual turbinate bone. The residual turbinate bone was outfractured. Suction Bovie electrocautery was used along the cut edge of the mucosa, especially posteriorly for hemostasis. Identical procedure was performed on the right side. After this was completed, the nasal airway was widely patent bilaterally. Narvaez splints were coated in triple antibiotic ointment and placed along the anterior septum bilaterally. These were sutured to the anterior septum using 3-0 Prolene suture. The nasal cavity was then thoroughly aspirated. The patient was turned back over to anesthesia and extubated without complication. All sponge, needle and instrument count was correct at the end of the case. COMPLICATIONS: None. DISPOSITION: Stable and transferred to recovery room. CONCHIS/ABILIO DR: Bronson TID: [id number]
[2020-11-24] MEDS: fentaNYL PF VIAL 100 MCG/2 ML VIAL IVP PRN ×2 (16:15→16:29)
[2020-11-24] MEDS ORDERED: oxyCODONE IR 5 MG TABLET PO ONE (16:30)
[2020-11-24] MEDS ORDERED: PROCHLORPERAZINE 10 MG/2 ML VIAL. ONE (16:48)
[2020-11-24 17:15] VITALS: BP 155/67
== END 2020-11-24 17:56 | disposition home or self-care (01) ==
LOC: SURG 12:36
PROVIDERS: ATTEND Otolaryngology
DX: J34.2 Deviated nasal septum (principal); J34.3 Hypertrophy of nasal turbinates; E78.00 Pure hypercholesterolemia, unspecified; E03.9 Hypothyroidism, unspecified; G47.30 Sleep apnea, unspecified; M19.90 Unspecified osteoarthritis, unspecified site; F17.210 Nicotine dependence, cigarettes, uncomplicated; Z90.710 Acquired absence of both cervix and uterus; Z98.890 Other specified postprocedural states; Z79.899 Other long term (current) drug therapy; Z72.89 Other problems related to lifestyle
CPT/HCPCS: 30140; 30520; A4215; A4364; A4930; A6214; J0330; J0360; J0780; J1100; J2405; J2704; J3010; J3490; A4452

== ENCOUNTER → 2021-03-27 | Outpatient (CLI) | payer OTHER ==
[~2021-03-27] MED LIST changes: +AMOX1TAB61 PO; -BACITRACIN TOPICAL OINT PACKET. TP ONE; -EPINEPHrine NASAL 30 MG/30 ML BOTTLE ONE; -GELATIN SPONGE SIZE 100. ONE; -HYDROmorphone 2 MG/ML VIAL IVP PRN; -LIDOCAINE 1%/EPI 1:100,000 20 ML VIAL. ONE; -MORPHINE SULFATE 2 MG/ML INJ. IVP PRN; +ONDA4TAB7 PO; +OXYC5CAP PO; -OXYMETAZOLINE 0.05% NASAL SPRAY 30ML BOTTLE. NS ONE; -PROCHLORPERAZINE 10 MG/2 ML VIAL. IVP PRN; -fentaNYL PF VIAL 100 MCG/2 ML VIAL IVP PRN
--- NOTE | 2021-03-27 12:15 | RAD ---
BILATERAL DIGITAL SCREENING 2-D AND 3-D MAMMOGRAM INDICATION: Routine screening. COMPARISON: March 24, 2020, March 14, 2019, October 08, 2017 Interpretation was made using CAD. FINDINGS: Breast Density: The breasts are heterogeneously dense, which may obscure small masses. RIGHT BREAST: No suspicious masses, calcifications or areas of architectural distortion are seen. LEFT BREAST: No suspicious masses, calcifications or areas of architectural distortion are seen. IMPRESSION: 1. No imaging evidence of malignancy. ASSESSMENT: BI-RADS 1. Negative. RECOMMENDATION: Routine annual screening mammogram. The facility will notify the patient of the results via mail. Patient information will be entered int o the mammography reminder system with a target recall date for the next mammogram. A reminder letter will be generated by the facility. Electronically signed by: Janice Arredondo MD (03/27/2021 12:13 PM) [id number]
== END ==
LOC: MAMMO 08:07
PROVIDERS: ATTEND Family Medicine
DX: Z12.31 Encounter for screening mammogram for malignant neoplasm of breast (principal)
CPT/HCPCS: 77063; 77067

== ENCOUNTER → 2021-03-28 | Outpatient (CLI) | payer OTHER ==
[2021-03-28 11:37] LABS: BASO % 1 % (0-3); EOS # 0.1 x10^3/uL (0.0-0.7); EOS % 2 % (0-3); HEMATOCRIT 38.7 % (36.0-47.0); HEMOGLOBIN 12.8 g/dL (12.0-15.5); LYMPH # 1.5 x10^3/uL (1.0-4.8); LYMPH % 25 % (24-48); MEAN CORPUSCULAR HEMOGLOBIN 30 pg (25-35); MEAN CORPUSCULAR HGB CONC 33 g/dL (31-37); MEAN CORPUSCULAR VOLUME 90 fL (79-100); MONO # 0.3 x10^3/uL (0.0-1.1); MONO % 5 % (0-9); NEUT % 67 % (31-73); PLATELET COUNT 213 x10^3/uL (140-400); RED BLOOD COUNT 4.28 x10^6/uL (3.50-5.40); RED CELL DISTRIBUTION WIDTH 13.2 % (11.5-14.5); WHITE BLOOD COUNT 5.9 x10^3/uL (4.0-11.0)
[2021-03-28 13:22] LABS: ALBUMIN 3.5 g/dL (3.4-5.0); ALBUMIN/GLOBULIN RATIO 1.1 (1.0-1.7); CALCIUM 8.7 mg/dL (8.5-10.1); CREATININE 0.8 mg/dL (0.6-1.0); GFR 73.2; POTASSIUM 4.3 mmol/L (3.5-5.1); TOTAL BILIRUBIN 0.3 mg/dL (0.2-1.0); TOTAL PROTEIN 6.8 g/dL (6.4-8.2)
[2021-03-28 13:23] LABS: CHOLESTEROL/HDL RATIO 2.2
== END ==
LOC: LAB 11:14
PROVIDERS: ATTEND Family Medicine
DX: E03.9 Hypothyroidism, unspecified (principal); E78.2 Mixed hyperlipidemia; E56.9 Vitamin deficiency, unspecified; E55.9 Vitamin D deficiency, unspecified
CPT/HCPCS: 36415; 80053; 80061; 82306; 84443; 85025

== ENCOUNTER 2021-04-16 20:59 | Emergency (ER) | payer OTHER ==
[~2021-04-16] VITALS: Ht 175.3 cm; Wt 88.0 kg
--- NOTE | 2021-04-16 21:26 | ED.ADGEN ---
Past Medical History Past Medical History: Hypothyroid, Other Additional Past Medical Histor: When pt informed of b/p reading replied it was normal for her-no hx HTN. Past Surgical History: Appendectomy, , Hysterectomy, Tubal ligation, Other Additional Past Surgical Histo: L) breast lymphectomy. Smoking Status: Current Every Day Smoker Alcohol Use: Occasionally Drug Use: None General Adult EDM: Chief Complaint: ABDOMINAL PAIN HPI: HPI: Patient is a 60 year old female coming in for upper abdominal pain that started 1 hour prior to arrival. Patient states pain started on the left and went across her stomach to the right into her left shoulder. Patient states it started after she had taken her 800 mg ibuprofen. Patient states she takes 800 mg ibuprofen 3 times a day for chronic back pain. Patient denies any nausea, vomiting, diarrhea. Denies any chest pain, shortness of breath or cough. Patient states she has a history of C-sections and appendectomy. Denies any history of ulcers or gastritis. Patient denies any other medical history Review of Systems: Review of Systems: All other systems within normal limits except for as noted in the HPI Current Medications: Current Medications Medications (Trade) Dose Ordered Sig/Paris Start Time Stop Time Status Last Admin Dose Admin Famotidine (Pepcid Vial) 20 mg 1X ONCE 04/16/21 23:30 04/16/21 23:31 DC 04/16/21 23:31 20 MG Info (CONTRAST GIVEN -- Rx MONITORING) 1 each PRN DAILY PRN 04/16/21 22:15 04/18/21 22:14 Iohexol (Omnipaque 300 Mg/ml) 75 ml 1X ONCE 04/16/21 22:15 04/16/21 22:16 DC 04/16/21 22:17 75 ML Morphine Sulfate (Morphine Sulfate) 4 mg 1X ONCE 04/16/21 21:30 04/16/21 21:31 DC 04/16/21 21:49 4 MG Multi-Ingredient Mouthwash/Gargle (Gi Cocktail) 20 ml 1X ONCE 04/16/21 23:00 04/16/21 23:01 DC 04/16/21 23:30 20 ML Allergies: Allergies: Allergies Coded Allergies Type Severity Reaction Last Updated Verified No Known Drug Allergies 04/16/21 No Physical Exam: PE: Constitutional: Well developed, well nourished, no acute distress, non-toxic appearance. [] HENT: Normocephalic, atraumatic, bilateral external ears normal, nose normal. [] Eyes: PERRLA, conjunctiva normal, no discharge. [] Neck: No rigidity, supple, no stridor. [] Cardiovascular: Regular rate and rhythm, brisk cap refill [] Lungs & Thorax: Non labored symmetric respirations, no tachypnea or respiratory distress [] Abdomen: Soft, nondistended, upper abdominal pain with palpation. Skin: Warm, dry, no erythema, no rash. [] Back: Unremarkable Extremities: No deformities, range of motion grossly intact, no lower extremity edema [] Neurologic: Alert and oriented X 3, no focal deficits noted. [] Psychologic: Affect normal, judgement normal, mood normal. [] Current Patient Data: Labs: Laboratory Tests Test 04/16/21 21:15 04/16/21 21:57 White Blood Count 6.6 x10^3/uL (4.0-11.0) Red Blood Count 4.19 x10^6/uL (3.50-5.40) Hemoglobin 12.9 g/dL (12.0-15.5) Hematocrit 37.8 % (36.0-47.0) Mean Corpuscular Volume 90 fL (79-100) Mean Corpuscular Hemoglobin 31 pg (25-35) Mean Corpuscular Hemoglobin Concent 34 g/dL (31-37) Red Cell Distribution Width 13.2 % (11.5-14.5) Platelet Count 224 x10^3/uL (140-400) Neutrophils (%) (Auto) 71 % (31-73) Lymphocytes (%) (Auto) 24 % (24-48) Monocytes (%) (Auto) 4 % (0-9) Eosinophils (%) (Auto) 1 % (0-3) Basophils (%) (Auto) 1 % (0-3) Neutrophils # (Auto) 4.7 x10^3/uL (1.8-7.7) Lymphocytes # (Auto) 1.6 x10^3/uL (1.0-4.8) Monocytes # (Auto) 0.3 x10^3/uL (0.0-1.1) Eosinophils # (Auto) 0.0 x10^3/uL (0.0-0.7) Basophils # (Auto) 0.0 x10^3/uL (0.0-0.2) Sodium Level 147 mmol/L (136-145) H Potassium Level 4.1 mmol/L (3.5-5.1) Chloride Level 110 mmol/L (98-107) H Carbon Dioxide Level 25 mmol/L (21-32) Anion Gap 12 (6-14) Blood Urea Nitrogen 24 mg/dL (7-20) H Creatinine 0.8 mg/dL (0.6-1.0) Estimated GFR (Cockcroft-Gault) 73.2 BUN/Creatinine Ratio 30 (6-20) H Glucose Level 145 mg/dL (70-99) H Calcium Level 8.3 mg/dL (8.5-10.1) L Total Bilirubin 0.3 mg/dL (0.2-1.0) Aspartate Amino Transferase (AST) 57 U/L (15-37) H Alanine Aminotransferase (ALT) 43 U/L (14-59) Alkaline Phosphatase 94 U/L (46-116) Troponin I High Sensitivity 5 ng/L (4-50) Total Protein 6.4 g/dL (6.4-8.2) Albumin 3.3 g/dL (3.4-5.0) L Albumin/Globulin Ratio 1.1 (1.0-1.7) Lipase 114 U/L (73-393) Urine Collection Type Unknown Urine Color Yellow Urine Clarity Clear Urine pH 7.5 (<5.0-8.0) Urine Specific [place] 1.020 (1.000-1.030) Urine Protein Negative mg/dL (NEG-TRACE) Urine Glucose (UA) Negative mg/dL (NEG) Urine Ketones (Stick) Negative mg/dL (NEG) Urine Blood Negative (NEG) Urine Nitrite Negative (NEG) Urine Bilirubin Negative (NEG) Urine Urobilinogen Dipstick 1.0 mg/dL (0.2 mg/dL) Urine Leukocyte Esterase Negative (NEG) Urine RBC Rare /HPF (0-2) Urine WBC 0 /HPF (0-4) Urine Squamous Epithelial Cells Few /LPF Urine Amorphous Sediment Present /HPF Urine Bacteria 0 /HPF (0-FEW) Urine Mucus Slight /LPF Laboratory Tests 04/16/21 21:15 Laboratory Tests 04/16/21 21:15 Vital Signs: Vital Signs Date Time Temp Pulse Resp B/P (MAP) Pulse Ox O2 Delivery O2 Flow Rate FiO2 04/16/21 21:49 16 96 Room Air 04/16/21 21:20 98.1 65 150/65 (93) 98.1 EKG: EKG: Sinus rhythm, heart rate 60 bpm, left axis deviation, nonspecific intraventricular block. No STEMI [] Heart Score: C/O Chest Pain: No HEART Score for Chest Pain: HEART Score for Chest Pain Response (Comments) Value History Slighlty/Non-Suspicious 0 ECG Nonspecific Repolarizatio 1 Age >45 - < 65 1 Risk Factors 1 or 2 Risk Factors 1 Troponin < Normal Limit 0 Total 3 Risk Factors: Risk Factors: DM, Current or recent (<one month) smoker, HTN, HLP, family history of CAD, obesity. Risk Scores: Score 0 - 3: 2.5% MACE over next 6 weeks - Discharge Home Score 4 - 6: 20.3% MACE over next 6 weeks - Admit for Clinical Observation Score 7 - 10: 72.7% MACE over next 6 weeks - Early Invasive Strategies Radiology/Procedures: Radiology/Procedures: [facility] [address] [place] [address] IMAGING REPORT Signed PATIENT: SYLVIE HERNADEZ ACCOUNT: [id number] : 1960 LOCATION: ER AGE: 60 SEX: F EXAM STATUS: REG ER ORD. PHYSICIAN: RADHA SANDY MD REASON: upper abd pain, OMNI 300 75 ML IV PROCEDURE: CT ABD PELV W/ IV CONTRST ONLY Exam: CT of abdomen and pelvis with contrast INDICATION: Upper abdominal pain TECHNIQUE: Sequential axial images through the abdomen and pelvis obtained following the administration of 75 mL of Omni 300 IV contrast. Sagittal and coronal reformatted images were reconstructed from the axial data and reviewed. Exposure: One or more of the following in the visualized dose reduction techniques were utilized for this examination: 1. Automated exposure control 2. Adjustment of the MA and/or KV according to patient size 3. Use of iterative of reconstructive technique Comparisons: None FINDINGS: Heart size is normal. No pericardial effusion. Visualized lung bases are clear. No pleural effusion. Liver, spleen, pancreas, gallbladder and adrenals are unremarkable. No perinephric inflammation or hydronephrosis. No renal or ureteral calculi are identified. Bladder is decompressed not well evaluated. Uterus is absent. No abnormal adnexal mass. Moderate amount of stool is noted throughout the colon. Appendix is nonidentified. No free intra-abdominal air or fluid. No obstruction. Abdominal aorta Normal course and caliber. Abdominal vasculature is patent. No enlarged intra-abdominal lymph nodes are identified. No suspicious osseous lesions or acute fractures. IMPRESSION: Large amount stool in colon, correlate for constipation. Electronically signed by: Fidelina Ellison MD (04/16/2021 10:32 PM) [facility] DICTATED and SIGNED BY: FIDELINA ELLISON MD DATE: 04/16/21 [id number] 0 [] Course & Med Decision Making: Course & Med Decision Making Pertinent Labs and Imaging studies reviewed. (See chart for details)/ Discussed findings of constipation on CT and advantages. Pain relieved with GI cocktail. Discussed risks of chronic NSAID use and gastritis/ulcer formation. Will prescribe Carafate and omeprazole to counteract effects of NSAID and help stomach heal. [] Dragon Disclaimer: Dragon Disclaimer: This electronic medical record was generated, in whole or in part, using a voice recognition dictation system. Departure Departure Impression: Primary Impression: Abdominal pain Disposition: 01 HOME / SELF CARE / HOMELESS Condition: STABLE Referrals: CORRIE MCCARTHY MD (PCP) Patient Instructions: Diet for Gastroesophageal Reflux Disease, Adult Scripts Sucralfate (CARAFATE) 1 Gm Tablet 1 TAB PO QID PRN for ABDOMINAL PAIN for 30 Days, #60 TAB 0 Refills Prov: RADHA SANDY MD 04/16/21 Omeprazole (OMEPRAZOLE) 40 Mg Capsule. 1 CAP PO DAILY for antacid, #30 CAP 3 Refills Prov: RADHA SANDY MD 04/16/21 RADHA SANDY MD Apr 16, 2021 21:26
[2021-04-16 21:30] LABS: BASO % 1 % (0-3); EOS % 1 % (0-3); HEMATOCRIT 37.8 % (36.0-47.0); HEMOGLOBIN 12.9 g/dL (12.0-15.5); LYMPH # 1.6 x10^3/uL (1.0-4.8); LYMPH % 24 % (24-48); MEAN CORPUSCULAR HEMOGLOBIN 31 pg (25-35); MEAN CORPUSCULAR HGB CONC 34 g/dL (31-37); MEAN CORPUSCULAR VOLUME 90 fL (79-100); MONO # 0.3 x10^3/uL (0.0-1.1); MONO % 4 % (0-9); NEUT # 4.7 x10^3/uL (1.8-7.7); NEUT % 71 % (31-73); PLATELET COUNT 224 x10^3/uL (140-400); RED BLOOD COUNT 4.19 x10^6/uL (3.50-5.40); RED CELL DISTRIBUTION WIDTH 13.2 % (11.5-14.5); WHITE BLOOD COUNT 6.6 x10^3/uL (4.0-11.0)
[2021-04-16] MEDS ORDERED: MORPHINE SULFATE 4 MG/ML INJ. IV ONE (21:30)
[2021-04-16 21:41] LABS: CALCIUM 8.3 mg/dL (8.5-10.1); CREATININE 0.8 mg/dL (0.6-1.0); GFR 73.2; POTASSIUM 4.1 mmol/L (3.5-5.1)
[2021-04-16 21:47] LABS: ALBUMIN 3.3 g/dL (3.4-5.0); ALBUMIN/GLOBULIN RATIO 1.1 (1.0-1.7); TOTAL BILIRUBIN 0.3 mg/dL (0.2-1.0); TOTAL PROTEIN 6.4 g/dL (6.4-8.2)
[2021-04-16 22:04] LABS: BILIRUBIN,URINE NEGATIVE (NEG); CLARITY,URINE CLEAR; COLOR,URINE YELLOW; NITRITE,URINE NEGATIVE (NEG); PH,URINE 7.5 (<5.0-8.0); PROTEIN,URINE NEGATIVE (NEG-TRACE)
[2021-04-16 22:14] LABS: AMORPHOUS SEDIMENT,UR PRESENT /HPF; BACTERIA,URINE 0 /HPF (0-FEW); RBC,URINE RARE /HPF (0-2); WBC,URINE 0 /HPF (0-4)
[2021-04-16] MEDS ORDERED: CONTRAST GIVEN. MC PRN (22:15)
[2021-04-16] MEDS ORDERED: IOHEXOL 300 MG/ML 100ML VIAL. IV ONE (22:15)
--- NOTE | 2021-04-16 22:34 | RAD ---
Exam: CT of abdomen and pelvis with contrast INDICATION: Upper abdominal pain TECHNIQUE: Sequential axial images through the abdomen and pelvis obtained following the administrati on of 75 mL of Omni 300 IV contrast. Sagittal and coronal reformatted images were reconstructed from the axial data and reviewed. Exposure: One or more of the following in the visualized dose reduction techniques were utilized for this examination: 1. Automated exposure control 2. Adjustment of the MA and/or KV according to patient size 3. Use of iterative of reconstructive technique Comparisons: None FINDINGS: Heart size is normal. No pericardial effusion. Visualized lung bases are clear. No pleural effusion. Liver, spleen, pancreas, gallbladder and adrenals are unremarkable. No perinephric inflammation or hydronephrosis. No renal or ureteral calculi are identified. Bladder is decompressed not well evaluated. Uterus is absent. No abnormal adnexal mass. Moderate amount of stool is noted throughout the colon. Appendix is nonidentified. No free intra-abdo dc air or fluid. No obstruction. Abdominal aorta Normal course and caliber. Abdominal vasculature is patent. No enlarged intra-abdominal lymph nodes are identified. No suspicious osseous lesions or acute fractures. IMPRESSION: Large amount stool in colon, correlate for constipation. Electronically signed by: Fidelina Velázquez MD (04/16/2021 10:32 PM) [facility]
[2021-04-16] MEDS ORDERED: LIDO:MAALOX 1:1 20 ML SINGLE DOSE. SWSW ONE (23:00)
[2021-04-16] MEDS ORDERED: FAMOTIDINE 20 MG/2 ML VIAL IVP ONE (23:30)
[2021-04-16] MEDS ORDERED: OMEP40CA7 PO (23:55)
[2021-04-16] MEDS ORDERED: SUCR1TAB35 PO (23:55)
[2021-04-17 00:30] VITALS: BP 120/56
--- NOTE | 2021-04-17 07:00 | EKG ---
[facility] [address] [place] [address] Test Date: 2021-04-16 Test Time: 21:04:19 Pat Name: SYLVIE HERNADEZ Department: Room: Gender: F Expert Witness: : 1960 Requested By: RADHA SANDY Order Number: [id number] Reading MD: Juan J Frye MD Measurements Intervals Gary Rate: 63 P: 48 MN: 198 QRS: -26 QRSD: 128 T: 69 QT: 454 QTc: 468 Interpretive Statements SINUS RHYTHM LBBB Electronically Signed On 04-17-2021 9:23:44 [employer]STING SUPERVISOR by Juan J Frye MD
== END 2021-04-17 00:45 | disposition home or self-care (01) ==
LOC: ER 20:59
DX: R10.11 Right upper quadrant pain (principal); R10.12 Left upper quadrant pain; E03.9 Hypothyroidism, unspecified; F17.200 Nicotine dependence, unspecified, uncomplicated; Z90.89 Acquired absence of other organs; Z90.710 Acquired absence of both cervix and uterus; Z98.51 Tubal ligation status
CPT/HCPCS: 36415; 74177; 80053; 81001; 83690; 84484; 85025; 93005; 96374; 96375; 99285; J2270; J3490; Q9967

== ENCOUNTER → 2021-04-21 | Outpatient (CLI) | payer OTHER ==
[2021-04-17 00:30] VITALS: BP 120/56
[~2021-04-21] MED LIST changes: +OMEP40CA7 PO; +SUCR1TAB35 PO
[2021-04-21] MEDS: REGADENOSON 0.4 MG/5 ML DISP.SYRIN. IV ONE (11:27)
--- NOTE | 2021-04-21 14:43 | RAD ---
MR#: [id number] Date of Study: 04/21/2021 Ordering Physician: MIKI GRECO, Referring Physician: TAMMY MASON Tech: RT Lars (R) (N) APPROVED REPORT Test Type: Pharmacological Stress Nurse/Tech: Lakia Rodas R.N. Test Indications: pre-op eval Cardiac History: smoker, obese Medications: See Electronic Medical Record Medical History: See Electronic Medical Record Resting Heart Rate: 55 bpm Resting Blood Pressure: 123/58mmHg Pretest Chest Pain: No chest pain Nurse/Tech Notes S1S2, lungs CTA Consent: The procedure was explained to the patient in lay terms. Informed consent was witnessed. Ashish eout was entered into [employer]. History and Stress Test performed by MAMI Rausch Pharm. Details Pharmacologic stress testing was performed using 0.4mg per 5ml of regadenoson given intravenously ove r 7-10 seconds. Stress Symptoms SOA, dizziness POST EXERCISE Reason for Termination: Infusion complete Max HR: 85 bpm Max Blood Pressure: 135/45mmHg Blood Pressure response to exercise: Normal blood pressure response during stress. Heart Rate response to exercise: wnl Chest Pain: No. Arrhythmia: No. ST Change: No. INTERPRETATION Stress EKG Conclusion: The resting EKG shows a sinus rhythm with a left bundle branch block. The stress EKG shows no significant changes from baseline. No EKG evidence of stress-induced ischemia. Imaging Protocol IMAGE PROTOCOL: Rest Tc-99m/stress Tc-99m 1 day Rest: Stress: Viability: Radiopharm.Tc99m TlblrynkwXx53w Sestamibi Dose9.5mCi 33mCi Duration 15min. 10min. Img Date 04/21/2021 04/21/2021 Inj-Img Cdhh47onq. 60min. Rest Admin Site:IV - Right AntecubitalAdministrator:MAMI Rausch Stress Admin Site: IV - Right AntecubitalAdministrator: RT Eboni (R)(N) STRESS DATA End Diast. Vol.94.0mlAv. Heart Rate65.0bpm End Syst. Vol.16.0mlCO Index BSA0.0L/min Myocardial Xsfq252.0gEject. Embqmiaa71.0% Stress Rates Pk. Fill Rate3.16EDV/secLVtime Pk. Fill 249.35msec Pk. Empty Rate4.03ESV/secLVtime Pk. Zydod461.68msec 1/3 Pk. Fill1.01EDV/sec Stress Scores Regional WT0.00Summed WT0.00 Regional WM0.00Summed WM0.00 LV Perfusion The stress scans show a mild septal defect. The rest scans show a slightly larger septal defect. Nuclear imaging shows no reversible ischemia. Nuclear imaging shows mild fixed septal wall thinning, rest greater than stress which is most consist ent with a technical artifact. Wall Motion Left ventricular systolic function is intact with an ejection fraction of greater than 80%. LV Perf. Quant 17 Seg. SSS9.00 17 Seg. SRS15.00 17 Seg. SDS1.00 Stress Defect Extent (% LAD)24.40Rest Defect Extent (% LAD)30.00Rev. Defect Extent (% LAD)3.10 Stress Defect Extent (% LCX) 0.00Rest Defect Extent (% LCX)21.30Rev. Defect Extent (% LCX)0.00 Stress Defect Extent (% RCA)6.70Rest Defect Extent (% RCA)34.40Rev. Defect Extent (% RCA)0.00 Stress Defect Extent (% NÉSTOR)14.30Rest Defect Extent (% NÉSTOR)32.80Rev. Defect Extent (% NÉSTOR)1.10 IMPRESSION LV Perfusion Summary: Normal, Equivocal, Abnormal Conclusion 1. Baseline abnormal EKG with no EKG evidence of stress-induced ischemia. 2. Nuclear imaging shows no reversible ischemia. 3. Nuclear imaging shows fixed septal wall thinning most consistent with a technical artifact. 4. Normal left ventricular systolic function with an ejection fraction of greater than 80%. 5. Moderately low risk Lexiscan nuclear stress test. Signed by : Yared Atkins MD Electronically Approved : 04/21/2021 14:42:55
== END ==
LOC: NM 09:46
PROVIDERS: ATTEND Internal Medicine Cardiovascular Disease
DX: Z01.818 Encounter for other preprocedural examination (principal); R94.31 Abnormal electrocardiogram [ECG] [EKG]
CPT/HCPCS: 78452; 93017; A9500; J2785

== ENCOUNTER 2021-04-24 07:27 | Day surgery (SDC) | payer OTHER ==
[~2021-04-24] VITALS: Ht 175.3 cm; Wt 90.2 kg
[2021-04-24] MEDS ORDERED: BUPIVACAINE MPF 0.25% 30 ML VIAL. ONE (07:32)
[2021-04-24 08:02] VITALS: BP 133/62
[2021-04-24] MEDS ORDERED: LIDOCAINE 2% PF 5 ML VIAL. ONE (08:55)
[2021-04-24] MEDS ORDERED: PROPOFOL 10 MG/ML (20ML) VIAL. IV ONE (08:55)
[2021-04-24] MEDS ORDERED: fentaNYL PF VIAL 100 MCG/2 ML VIAL ONE (08:56)
[2021-04-24] MEDS ORDERED: DEXAMETHASONE SOD PHOS 4 MG/ML VIAL ONE (08:56)
[2021-04-24] MEDS ORDERED: ONDANSETRON PF 4 MG/2 ML VIAL. ONE (08:56)
[2021-04-24] MEDS ORDERED: methylPREDNISolone ACETATE 80 MG/ML VIAL. ONE (08:56)
[2021-04-24] MEDS ORDERED: methylPREDNISolone ACETATE 40 MG/ML VIAL. ONE (09:24)
[2021-04-24] MEDS ORDERED: SEVOFLURANE 31 TO 60 MINUTES. IH ONE (09:28)
[2021-04-24] MEDS ORDERED: TRAM50TA PO (09:34)
--- NOTE | 2021-04-24 09:39 | PDOC4 ---
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 DO Apr 24, 2021 09:39
[2021-04-24] MEDS ORDERED: HYDROmorphone 2 MG/ML INJ. IVP PRN (09:45)
[2021-04-24] MEDS ORDERED: IV RINGERS,LACTATED 1000ML 1,000 ML IV SCH (09:45)
[2021-04-24] MEDS ORDERED: MORPHINE SULFATE 2 MG/ML INJ. IVP PRN (09:45)
[2021-04-24] MEDS ORDERED: fentaNYL PF VIAL 100 MCG/2 ML VIAL IVP PRN ×2 (09:45)
[2021-04-24] MEDS ORDERED: PROCHLORPERAZINE 10 MG/2 ML VIAL. IVP PRN (09:45)
[2021-04-24 10:03] VITALS: BP 109/60
--- NOTE | 2021-04-25 15:26 | PATHOLOGY ---
[facility] Accession Number: [id number] . 01 Material submitted: . thumb - RIGHT THUMB MASS. Modifiers: right . 01 Clinical history: . RIGHT THUMB MASS EXCISION OF RIGHT THUMB MASS AND STEROID INJECTION . 02 Diagnosis: Segment of fibroadipose tissue, right thumb mass excision: - Angiofibroma. (JPM:pit; 04/25/2021) QTP 04/25/2021 1200 Local . 02 Comment: There is no evidence of malignancy. (JPM:pit; 04/25/2021) . 02 Electronically signed: . Juventino Miller MD, Pathologist NPI- [id number] . 01 Gross description: . The specimen is received in formalin, labeled "Rita Jiang, right thumb mass" and consists of a benjamin-white rubbery irregular tissue with minimal attached fat (1.0 x 0.9 x 0.3 cm). Sectioning reveals benjamin dense cut surfaces. The specimen is submitted entirely in A1. (GAMBELL; 04/24/2021) DKA/DKA 04/24/2021 1613 Local . 02 Pathologist provided ICD-10: D23.61 . 02 CPT . 775685 Specimen Comment: A courtesy copy of this report has been sent to [phone], [phone] Specimen Comment: [id number] Specimen Comment: Report sent to / DR MCCARTHY Specimen Comment: A duplicate report has been generated due to demographic updates. Performed at: 01 [facility] [address], [place] [id number] MD Ignacio Saunders MD Phone: [phone] Performed at: 02 [facility] [address] [place], [place] [address] MD Juventino Miller MD Phone: [phone]
--- NOTE | 2021-04-26 09:06 | OP ---
DATE OF SURGERY: 04/24/2021 ADDENDUM Following the application of , the tourniquet was deflated with good return of pulses and capillary refill. The patient was then taken from the operative bed to the postoperative bed, taken to the PACU in stable condition. ELVIN/AQUILINO DR: Patrick TID: [id number]
--- NOTE | 2021-05-01 16:25 | OP ---
DATE OF SURGERY: 04/24/2021 PREOPERATIVE DIAGNOSES: Mass, right thumb and carpometacarpal arthritis, right thumb. POSTOPERATIVE DIAGNOSES: Mass, right thumb and carpometacarpal arthritis, right thumb. PROCEDURES: 1. Excision of mass, right thumb. 2. Injection CMC joint, right thumb. SURGEON: Jesús Camejo Jr, DO ANESTHESIA: General. COMPLICATIONS: None. ESTIMATED BLOOD LOSS: 5 mL. DESCRIPTION OF PROCEDURE: The patient was taken to the operative suite, given a general anesthetic. Right upper extremity was then prepped and draped in a sterile fashion. Tourniquet was inflated. Incision was made directly over the area of the mass. This was carefully taken down to identify the mass adjacent to the CMC joint, but appeared to be soft tissue mass, which was removed in its entirety. This was down toward the capsular region, but did not penetrate completely into the joint of the CMC joint or the MCP joint. Tendon was also noted to be intact and stable. This was thoroughly irrigated. Superficial bleeding was coagulated. This wound was reapproximated in an interrupted fashion using 3-0 nylon. The injection was then placed within the CMC joint with dilute steroid and the local was placed in the area of the thumb mass incision site. Sterile dressing was applied. Tourniquet was deflated with good return of pulses and capillary refill. The patient was then taken from the operative bed to the postoperative bed, taken to the PACU in stable condition. ELVIN DR: Patrick TID: [id number]
== END 2021-04-24 10:32 | disposition home or self-care (01) ==
LOC: SURG 07:27
PROVIDERS: ATTEND Orthopaedic Surgery
DX: D23.61 Other benign neoplasm of skin of right upper limb, including shoulder (principal); M67.441 Ganglion, right hand; M79.644 Pain in right finger(s); E78.00 Pure hypercholesterolemia, unspecified; E03.9 Hypothyroidism, unspecified; G47.30 Sleep apnea, unspecified; M19.90 Unspecified osteoarthritis, unspecified site; F17.210 Nicotine dependence, cigarettes, uncomplicated; Z90.710 Acquired absence of both cervix and uterus; Z98.51 Tubal ligation status; Z98.890 Other specified postprocedural states; Z79.899 Other long term (current) drug therapy; Z72.89 Other problems related to lifestyle
CPT/HCPCS: 11421; 20600; 88305; A4930; J0690; J1030; J1100; J2405; J2704; J3010; J3490; A4223; A4657; A6452; J1040

== ENCOUNTER → 2021-04-27 | Outpatient (CLI) | payer OTHER ==
[2021-04-24 10:03] VITALS: BP 109/60
[~2021-04-27] MED LIST changes: +IOHEXOL 350 MG/ML 100 ML VIAL. IV ONE; +TRAM50TA PO
--- NOTE | 2021-04-27 08:49 | RAD ---
EXAM: CT angiography of the chest without and with intravenous contrast. HISTORY: Chest pain. TECHNIQUE: Computed tomographic images of the chest were obtained prior to and following the administ ration of intravenous contrast according to angiography protocol. Multiplanar reformatting was perfor med and three dimensional maximum intensity projection images were obtained. *One or more of the following individualized dose reduction techniques were utilized for this examina tion: 1. Automated exposure control. 2. Adjustment of the mA and/or kV according to patient size. 3. Use of iterative reconstruction technique. COMPARISON: None. FINDINGS: There is no evidence of pulmonary embolism. There is no aortic aneurysm or dissection. The heart is normal in size. There are nonspecific mediastinal and right hilar lymph nodes. For reference purposes, a right hilar lymph node measures 1.4 cm. This is likely physiologic or reactive. There is coronary artery calcification. There is no pleural effusion or pneumothorax. There is moderate emphysema. There is posterior depende nt and basilar atelectasis. There are several small groundglass nodules within the right lung. The la rgest of these measure 6 mm within the lateral right upper lobe (series 3, image 34), 5 mm within the lateral right lower lobe (series 3, image 39), and 4 mm within the superior segment of the right low er lobe (series 3, image 31). There is also a abdomen groundglass nodular opacity abutting the pleura of the superior segment of the left lower lobe (series 3, image 26). There is no acute finding involving the upper abdomen. There is no acute or suspicious osseous findin g. There is a suspected densely calcified superior right paracentral to lateral recess disc protrusio n at T5-T6, without significant central canal stenosis. IMPRESSION: 1. No evidence of pulmonary embolism. 2. Several tiny groundglass nodules within the right greater than left lung measuring up to 6 mm. Fol low-up can be performed in one year to confirm benignity. 3. Pulmonary emphysema. 4. Coronary artery calcification. Electronically signed by: Donna Palomino MD (04/27/2021 8:47 AM) [id number]
== END ==
LOC: CT 07:51
PROVIDERS: ATTEND Family Medicine
DX: R91.8 Other nonspecific abnormal finding of lung field (principal); J43.9 Emphysema, unspecified; I25.10 Atherosclerotic heart disease of native coronary artery without angina pectoris; M51.24 Other intervertebral disc displacement, thoracic region; J98.11 Atelectasis
CPT/HCPCS: 71275; Q9967

== ENCOUNTER → 2021-05-23 | Outpatient (CLI) | payer OTHER ==
[2021-04-24 10:03] VITALS: BP 109/60
[~2021-05-23] MED LIST changes: -IOHEXOL 350 MG/ML 100 ML VIAL. IV ONE
[2021-05-23 11:01] LABS: BASO % 1 % (0-3); EOS # 0.1 x10^3/uL (0.0-0.7); EOS % 1 % (0-3); HEMATOCRIT 43.3 % (36.0-47.0); HEMOGLOBIN 14.1 g/dL (12.0-15.5); LYMPH # 1.1 x10^3/uL (1.0-4.8); LYMPH % 15 % (24-48); MEAN CORPUSCULAR HEMOGLOBIN 29 pg (25-35); MEAN CORPUSCULAR HGB CONC 32 g/dL (31-37); MEAN CORPUSCULAR VOLUME 90 fL (79-100); MONO # 0.3 x10^3/uL (0.0-1.1); MONO % 3 % (0-9); NEUT # 6.2 x10^3/uL (1.8-7.7); NEUT % 81 % (31-73); PLATELET COUNT 215 x10^3/uL (140-400); RED BLOOD COUNT 4.82 x10^6/uL (3.50-5.40); RED CELL DISTRIBUTION WIDTH 13.3 % (11.5-14.5); WHITE BLOOD COUNT 7.7 x10^3/uL (4.0-11.0)
[2021-05-23 11:07] LABS: BILIRUBIN,URINE NEGATIVE (NEG); CLARITY,URINE CLEAR; COLOR,URINE YELLOW; NITRITE,URINE NEGATIVE (NEG); PH,URINE 5.5 (<5.0-8.0); PROTEIN,URINE NEGATIVE (NEG-TRACE); UROBILINOGEN,URINE 0.2 mg/dL (0.2 mg/dL)
[2021-05-23 11:08] LABS: BACTERIA,URINE FEW /HPF (0-FEW)
[2021-05-23 11:09] LABS: RBC,URINE 0 /HPF (0-2); WBC,URINE 0 /HPF (0-4)
[2021-05-23 11:22] LABS: ALBUMIN 3.8 g/dL (3.4-5.0); CALCIUM 9.4 mg/dL (8.5-10.1); CREATININE 0.9 mg/dL (0.6-1.0); GFR 63.9; MAGNESIUM 2.1 mg/dL (1.8-2.4); POTASSIUM 4.4 mmol/L (3.5-5.1); TOTAL BILIRUBIN 0.4 mg/dL (0.2-1.0); TOTAL PROTEIN 7.6 g/dL (6.4-8.2)
[2021-05-23 11:30] LABS: CHOLESTEROL/HDL RATIO 2.3
== END ==
LOC: LAB 10:29
PROVIDERS: ATTEND Family Medicine
DX: R79.89 Other specified abnormal findings of blood chemistry (principal); E03.9 Hypothyroidism, unspecified; E78.2 Mixed hyperlipidemia; E55.9 Vitamin D deficiency, unspecified
CPT/HCPCS: 80053; 80061; 81001; 82306; 83735; 84443; 85025

== ENCOUNTER → 2021-05-26 | Outpatient (CLI) | payer OTHER ==
--- NOTE | 2021-05-26 11:02 | CARD ---
MR#: [id number] Date of Study: 05/26/2021 Ordering Physician: MIKI MAHONEY, Referring Physician: Rosa Maria MASON: Yair Johnson [facility] APPROVED REPORT EXAM: Two-dimensional and M-mode echocardiogram with Doppler and color Doppler. Other Information Quality : AverageHR: 50bpm Rhythm : Bradycardia INDICATION Chest Pain RISK FACTORS Hyperlipidemia 2D DIMENSIONS Left Atrium(2D)4.3 (1.6-4.0cm)IVSd1.1 (0.7-1.1cm) Aortic Root(2D)3.4 (2.0-3.7cm)LVDd4.8 (3.9-5.9cm) LVOT Diameter2.0 (1.8-2.4cm)PWd1.1 (0.7-1.1cm) LA Vkwszy79 (18-58mL)LVDs2.9 (2.5-4.0cm) FS (%) 39.6 %SV75.7 ml LVEF(%)70.1 (>50%) Aortic Valve AoV Peak Pernell.141.2cm/sAoV VTI30.7cm AO Peak GR.8.0mmHgLVOT Peak Pernell.119.0cm/s LVOT VTI 28.97cmAO Mean GR.4mmHg NATASHA (VMAX)1.25ce8JKG (VTI)2.92cm2 Mitral Valve MV E Lfhrtnqo87.6cm/sMV DECEL GWLX689qj MV A Meustlgt25.5cm/sMV MTE83vx E/A Ratio1.3MVA (PHT)3.66cm2 TDI E/Lateral E'12.1E/Medial E'11.2 Pulmonary Valve PV Peak Huidtxbj071.4cm/sPV Peak Grad.4mmHg Tricuspid Valve TR P. Pzdrwmab032km/sTR Peak Gr.15mmHg Pulmonary Vein S1 Hhelrjju94.2cm/sD2 Fcxqmmiw03.0cm/s LEFT VENTRICLE The left ventricle is normal size. There is normal left ventricular wall thickness. The left ventricu lar systolic function is normal. The ejection fraction is 55-60%. There is normal LV segmental wall m otion. The left ventricular diastolic function and filling is normal for age. No left ventricle throm bus noted on this study. There is no ventricular septal defect visualized. There is no left ventricul ar aneurysm. There is no mass noted in the left ventricle. RIGHT VENTRICLE The right ventricle is normal size. There is normal right ventricular wall thickness. The right ventr icular systolic function is normal. ATRIA The left atrium is mildly dilated. The right atrium size is normal. The interatrial septum is intact with no evidence for an atrial septal defect or patent foramen ovale as noted on 2-D or Doppler imagi ng. AORTIC VALVE The aortic valve is normal in structure and function. Doppler and Color Flow revealed no significant aortic regurgitation. There is no significant aortic valvular stenosis. There is no aortic valvular v egetation. MITRAL VALVE The mitral valve is thickened but opens well. There is no evidence of mitral valve prolapse. There is no mitral valve stenosis. Doppler and Color-flow revealed mild mitral regurgitation. TRICUSPID VALVE The tricuspid valve is normal in structure and function. Doppler and Color Flow revealed trace tricus pid regurgitation. The PA pressure was estimated at 25 mmHg. There is no tricuspid valve prolapse or vegetation. There is no tricuspid valve stenosis. PULMONIC VALVE The pulmonary valve is normal in structure and function. Doppler and Color Flow revealed no pulmonic valvular regurgitation. There is no pulmonic valvular stenosis. GREAT VESSELS The aortic root is normal in size. The ascending aorta is normal in size. The pulmonary artery is nor mal. The IVC is normal in size and collapses >50% with inspiration. PERICARDIAL EFFUSION There is no pleural effusion. There is no evidence of significant pericardial effusion. Critical Notification Critical Value: No <Conclusion> The left ventricular systolic function is normal. The ejection fraction is 55-60%. There is normal LV segmental wall motion. Mild mitral regurgitation. Trace tricuspid regurgitation. The PA pressure was estimated at 25 mmHg. There is no evidence of significant pericardial effusion. Signed by : Miki Mahoney, Electronically Approved : 05/26/2021 11:01:44
== END ==
LOC: ECHO 08:38
PROVIDERS: ATTEND Internal Medicine Cardiovascular Disease
DX: I34.0 Nonrheumatic mitral (valve) insufficiency (principal)
CPT/HCPCS: 93306; C8929